=== PATIENT | female | born 1990 | race Caucasian/White ===

== ENCOUNTER 2020-01-28 02:11 | Observation (INO) | payer OTHER ==
[2020-01-28 02:39] LABS: Bilirubin Negative (Negative); Blood, Urine Negative (Negative); Clarity Clear (Clear); Glucose, Urine (Dipstick) Normal (Negative); Ketone, Urine Negative (Negative); Leukocyte Negative Leu/uL (Negative); Nitrite Negative (Negative); Protein, Urine (Dipstick) Negative (Neg-Trace); Specific Gravity, Urine 1.026 (1.002-1.036); Urobilinogen Normal mg/dL (Less than 2)
[2020-01-28 02:49] LABS: Pregnancy Test - Urine (BHCG) Negative (Negative); Pregu Control Background? CLEAR/WHITE (CLR/WHITE); Pregu Control Bar Appear? YES (CONTROL BAR); Specific Gravity 1.026 (1.002-1.036)
[2020-01-28] MEDS ORDERED: Morphine 4 MG/ML VIAL ONE ×2 (03:11→04:09)
[2020-01-28] MEDS ORDERED: Ondansetron PF 4 MG/2 ML Vial ONE ×3 (03:12→14:35)
[2020-01-28 03:16] LABS: #Basophils 0.1 thou/uL (0.0-0.2); #Eosinphils 0.4 thou/uL (0.0-0.7); #Lymphocytes 3.3 thou/uL (1.20-3.40); #Monocytes 0.9 thou/uL (0.11-0.59); #Neutrophils 11.8 thou/uL (1.40-6.50); %Basophils 0.6 % (0.0-1.0); %Eosinophils 2.4 % (0.0-10.0); %Monocytes 5.6 % (0.0-10.0); %Neutrophils 71.4 % (42.0-75.0); Hemoglobin 13.3 g/dL (12.0-16.0); Mean Corpuscular HGB CONC 34.4 g/dL (32.0-36.0); Mean Corpuscular Hemoglobin 31.1 pg (27.0-31.0); Mean Corpuscular Volume 90.3 fL (78.0-98.0); Mean Platelet Volume 7.5 fL (7.4-10.4); Platelet Count 332 thou/uL (130-400); RBC Distribution Width 11.2 % (11.5-14.5); Red Blood Cell (RBC) Count 4.29 mill/uL (4.20-5.40); White Blood Cell (WBC) Count 16.6 thou/uL (4.8-10.8)
[2020-01-28 03:45] LABS: ALT (SGPT) 16 U/L (8-55); AST (SGOT) 15 U/L (5-34); Alkaline Phosphatase 41 U/L (40-110); Anion Gap 14 mmol/L (10-20); BUN (Urea Nitrogen) 11 mg/dL (7.0-18.7); Bilirubin, Total 0.3 mg/dL (0.2-1.2); Calc. Creatinine Clearance 0 mL/min (70-130); Carbon Dioxide 21 mmol/L (22-29); Chloride 108 mmol/L (98-107); Globulin 3.2 g/dL (2.4-3.5); Glucose 107 mg/dL (70-105); Potassium 3.7 mmol/L (3.5-5.1); Protein, Total 7.2 g/dL (6.0-8.3); Sodium 139 mmol/L (136-145)
[2020-01-28] MEDS ORDERED: Ketorolac Tromethamine 30 MG/ML VIAL ONE ×2 (04:10→15:52)
[2020-01-28] MEDS ORDERED: Piperacillin/Tazobactam 4.5 GM VIAL ONE (04:59)
[2020-01-28] MEDS ORDERED: Promethazine HCl 25 MG/ML VIAL ONE (05:42)
[2020-01-28 06:28] VITALS: BMI 29.2
[2020-01-28] MEDS ORDERED: Morphine 4 MG/ML VIAL SLOW IVP PRN ×2 (07:23→15:35)
[2020-01-28] MEDS ORDERED: Ondansetron PF 4 MG/2 ML Vial IVP PRN ×2 (07:24→15:35)
[2020-01-28] MEDS ORDERED: Ondansetron ODT 4 MG TAB PO PRN (07:24)
[2020-01-28] MEDS ORDERED: Sodium Chloride 0.9% 1,000 ML IV SCH (07:30)
--- NOTE | 2020-01-28 08:12 | CT ---
PRELIMINARY REPORT/DIRECT RADIOLOGY/EMERGENCY AFTER HOURS PROCEDURE: EXAM: CT Abdomen and Pelvis with Intravenous Contrast CLINICAL HISTORY: Patient states she started having some right lower quadrant abdominal pain approxi mately 7 hours ago. She has some nausea but has not been vomiting TECHNIQUE: Axial computed tomography images of the abdomen and pelvis with intravenous contrast. CONTRAST: With; ISOVUE 370,100mL COMPARISON: None provided. FINDINGS: LUNG BASES: No basilar airspace consolidation or pleural effusion. LIVER: 1.4 cm flash filling lesion within the central portion of the right lobe, which in a patient o f this age without suspicious clinical history most likely represents a benign lesion such as a flash filling hemangioma. Otherwise normal. GALLBLADDER AND BILE DUCTS: Unremarkable. No calcified stone. No ductal dilation. PANCREAS: Unremarkable. SPLEEN: Unremarkable. ADRENAL GLANDS: Unremarkable. KIDNEYS, URETERS, AND BLADDER: Unremarkable. No hydronephrosis or nephrolithiasis. No ureteral or rhett dder calculi. STOMACH AND BOWEL: No obstruction. No wall thickening. No CT evidence of colitis or acute diverticuli tis. APPENDIX: Mildly enlarged and fluid-filled with hyperemic mucosa and periappendiceal fat stranding. Retrocecal in position. No evidence of perforation. PERITONEUM: No free fluid. No free air. LYMPH NODES: No lymphadenopathy. REPRODUCTIVE: Unremarkable as visualized. VASCULATURE: No aortic aneurysm. BONES: No fracture or suspicious osseous abnormality. ABDOMINAL WALL AND SOFT TISSUES: Small fat-containing umbilical hernia. IMPRESSION: Findings consistent with acute uncomplicated appendicitis. ELECTRONICALLY SIGNED BY: Panda Castro MD Jan 28, 2020 4:18:24 AM PASTR[facility]IXER FINAL REPORT ABDOMEN AND PELVIC CT WITH CONTRAST: EMERGENCY AFTER HOURS EXAM TIME: 4:02 AM. DATE: 01/28/2020. There is some minimal enlargement of the appendix with some enhancement and periappendiceal fat stran ding with a small appendicolith evidence for acute appendicitis without evidence for rupture or drainable abscess. A small fat-containing umbilical hernia. This report is in agreement with the preliminary report. Transcribed Date/Time: 01/28/2020 8:59 AM
[2020-01-28] MEDS ORDERED: Succinylcholine 200 MG/10 ml SYRINGE FS ONE (09:46)
[2020-01-28] MEDS ORDERED: Glycopyrrolate 0.2 MG/ML 5 ML SYRINGE ONE (09:46)
[2020-01-28] MEDS ORDERED: PROPOFOL 200 MG/20 ML VIAL ONE (09:46)
[2020-01-28] MEDS ORDERED: diphenhydrAMINE 50 MG/ML VIAL ONE (09:46)
[2020-01-28] MEDS ORDERED: Dexamethasone 20 MG/5 ML VIAL ONE (09:46)
[2020-01-28] MEDS ORDERED: Rocuronium Bromide 10 MG/ML (10ML VIAL) ONE (09:46)
--- NOTE | 2020-01-28 10:49 | HP ---
CHIEF COMPLAINT: Right lower quadrant abdominal pain. HISTORY OF PRESENT ILLNESS: The patient is a 29-year-old female with about a 15-hour history of right lower quadrant pain, associated with nausea and vomiting. No fever. PAST MEDICAL HISTORY: Otherwise healthy. PAST SURGERIES: . MEDICATIONS: None. ALLERGIES: ASPIRIN. 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 No tobacco or alcohol. PHYSICAL EXAMINATION: VITAL SIGNS: Temperature 98.5, pulse 98, blood pressure 113/66. GENERAL: Well-developed, well-nourished female, in no apparent distress, lying still. HEENT: Unremarkable. LUNGS: Clear. HEART: Regular rate and rhythm. ABDOMEN: Soft, very tender in the right lower quadrant. EXTREMITIES: Unremarkable. LABORATORY AND DIAGNOSTIC STUDIES: Her white count is 16.6, H/H 13 and 38, and platelet count 332. Electrolytes are fine. Urinalysis clear. HCG negative. CT scan of the abdomen and pelvis shows enlargement of the appendix with some enhancement and stranding consistent with acute appendicitis. ASSESSMENT: Acute appendicitis. PLAN: Laparoscopic appendectomy. CONSENT: I have discussed planned procedure as well as risk of bleeding, infection, injury to bowel and bladder, need to open. She understands and gives informed consent. Job ID: [id number]
[2020-01-28] MEDS ORDERED: Piperacillin/Tazobactam 3.375 GM in Sodium Chloride 0.9% 100 ML IVPB SCH (12:00)
[2020-01-28] MEDS ORDERED: FLU VACC QS2020-21(6MOS UP)/PF 60 MCG/0.5 ML SYRINGE IM ONE (12:30)
[2020-01-28] MEDS ORDERED: Piperacillin/Tazobactam 3.375 GM VIAL ONE (13:51)
[2020-01-28] MEDS ORDERED: Sodium Chloride 0.9% 100 ML ONE (13:52)
[2020-01-28] MEDS ORDERED: Fentanyl 100 MCG/2 ML VIAL ONE ×3 (14:13→16:18)
[2020-01-28] MEDS ORDERED: Iopamidol-370 76% 500 ML 1 ML ONE (14:22)
[2020-01-28] MEDS ORDERED: Bupivacaine 0.25% HCL 30 ML VIAL ONE (14:34)
[2020-01-28] MEDS ORDERED: Scopolamine 1.5 mg/72 hour Patch ONE (14:34)
[2020-01-28] MEDS ORDERED: Lidocaine 1% w/Epinephrine 1:100K 20 ML VIAL ONE (14:34)
[2020-01-28] MEDS ORDERED: Famotidine/PF 20 mg/2ml Vial ONE (14:34)
[2020-01-28] MEDS ORDERED: Midazolam HCl 2 mg/2 ml Vial ONE (14:36)
[2020-01-28] MEDS ORDERED: HYDROcodone/Acetaminophen 10/325 mg Tablet PO PRN ×2 (15:35)
[2020-01-28] MEDS ORDERED: Dextrose 50% Abboject 50 ML SYRINGE SLOW IVP PRN (15:35)
[2020-01-28] MEDS ORDERED: Promethazine HCl 25 MG/ML VIAL IM PRN ×2 (15:35→15:43)
[2020-01-28] MEDS ORDERED: hydrALAZINE 20 MG/ML VIAL SLOW IVP PRN (15:35)
[2020-01-28] MEDS ORDERED: Dextrose 5% in Water 1,000 ML IV PRN (15:35)
[2020-01-28] MEDS ORDERED: Morphine 2 MG/ML VIAL SLOW IVP PRN (15:35)
[2020-01-28] MEDS ORDERED: PACU-Morphine 4MG/ML VIAL SLOW IVP PRN (15:43)
[2020-01-28] MEDS ORDERED: Ketorolac Tromethamine 30 MG/ML VIAL IVP PRN (15:43)
[2020-01-28] MEDS ORDERED: Ondansetron HCl/PF 4 MG/2 ML Vial IVP PRN (15:43)
[2020-01-28] MEDS ORDERED: Meperidine HCl/PF 25 MG/ML VIAL SLOW IVP PRN (15:43)
[2020-01-28] MEDS ORDERED: HYDROmorphone 2 MG/ML VIAL SLOW IVP PRN (15:43)
[2020-01-28] MEDS ORDERED: Morphine Sulfate 2 MG/ML SYRINGE SLOW IVP PRN (15:43)
[2020-01-28] MEDS ORDERED: D5 1/2 NS w/20 mEq KCL 1,000 ML IV SCH (15:45)
--- NOTE | 2020-01-28 15:49 | OP ---
DATE OF PROCEDURE: 01/28/2020 PREOPERATIVE DIAGNOSIS: Acute appendicitis. PROCEDURE PERFORMED: Laparoscopic appendectomy. INDICATIONS: A 29-year-old female presented with less than 24-hour history of right lower quadrant pain, nausea, leukocytosis, and a CT scan consistent with appendicitis. FINDINGS: Acute suppurative, nonperforated appendicitis. DESCRIPTION OF PROCEDURE: After informed consent was obtained, the patient was taken to the operating room and given general endotracheal anesthesia, placed in the supine position. Abdomen was prepped and draped in usual fashion. Local anesthesia was infiltrated subcutaneously and deep, and a subumbilical incision was performed. Subcu divided sharply. The fascia was grasped and 2 stay sutures of 0 Vicryl placed through either side of midline. Midline incised. Digital palpation revealed no local adhesions. A blunt 12 mm trocar inserted. Pneumoperitoneum was created to a pressure of 15 mmHg. A 0-degree laparoscope inserted under direct vision. Two 5-mm ports were placed, one suprapubic, one right lateral abdomen. The appendix was found. The mesoappendix divided with the LigaSure. The base of appendix was divided utilizing a linear 45 mm white load stapler. The appendix was placed in an endosac and removed from the abdomen through the umbilical port. Hemostasis achieved. The abdomen irrigated. Pelvis irrigated. Irrigation fluid removed. Trocars and retractors removed. The fascia closed with interrupted 0 Vicryl suture. The skin closed with interrupted 4-0 Rapide. Dermabond applied. The patient tolerated the procedure well, transferred to Recovery in good condition. Sponge and needle count verified correct x2. Job ID: [id number]
[2020-01-28 17:49] VITALS: BP 105/60
[2020-01-28 18:01] LABS: SARS-CoV-2 MS2 Positive; SARS-CoV-2 N Gene Negative; SARS-CoV-2 S Gene Negative; SARS-CoV-2 by NAA Not Detected (NotDetected); SARS-CoV-2 orf1ab Negative
[2020-01-28 19:56] VITALS: TEMP 98.1
[2020-01-28] MEDS ORDERED: Famotidine 20 MG TAB PO SCH (21:00)
[2020-01-28] MEDS ORDERED: Famotidine/PF 20 mg/2ml Vial SLOW IVP SCH (21:00)
[2020-01-29] MEDS ORDERED: Enoxaparin Sodium 40 MG/0.4 ML SYRINGE SC SCH (09:00)
== END 2020-01-28 18:35 | disposition home or self-care (01) ==
LOC: ERS 02:11 → 3SE 05:16
PROVIDERS: ADMIT Surgery; ATTEND Surgery
PROC: 0DTJ4ZZ Resection of Appendix, Percutaneous Endoscopic Approach (ICD-10-PCS; principal; 2020-01-28)
DX: K35.80 Unspecified acute appendicitis (principal); K38.1 Appendicular concretions; K42.9 Umbilical hernia without obstruction or gangrene; Z88.6 Allergy status to analgesic agent; Z20.828 Contact with and (suspected) exposure to other viral communicable diseases
CPT/HCPCS: 36415; 74177; 80053; 81003; 81025; 83690; 85025; 87635; 88304; 96365; 96368; 96375; 96376; G0378; J1100; J1200; J1885; J2250; J2270; J2405; J2543; J2550; J2704; J3010; J3490; Q9967; S0020; S0028; U0003

== ENCOUNTER 2021-08-30 09:00 | Emergency (ER) | payer OTHER, SELFPAY ==
[2021-08-30 17:23] LABS: HIV (1/2) Antibody/Antigen Non-Reactive (NonReactive); Hep C IgG Ab Non-Reactive (NonReactive); Hep C Index 0.06 S/CO (0-0.79)
[2021-08-30 17:25] LABS: HBSAB Concentration 320.47 mIU/mL; Hep B Surf AB Reactive (NonReactive)
== END 2021-08-30 09:38 | disposition home or self-care (01) ==
LOC: ERS 09:00
DX: S61.231A Puncture wound without foreign body of left index finger without damage to nail, initial encounter (principal); Z77.21 Contact with and (suspected) exposure to potentially hazardous body fluids; X58.XXXA Exposure to other specified factors, initial encounter
CPT/HCPCS: 36415; 99283